=== PATIENT | male | born 1965 | race Caucasian/White ===

== ENCOUNTER 2021-10-30 20:59 | Inpatient (IN) ==
[2021-10-30 22:11] LABS: ABS Basophils 0.1 10^3/ul (0-0.2); ABS Eosinophils 0.1 10^3/ul (0-0.6); ABS Lymphocytes 2.1 10^3/ul (1.0-4.8); ABS Monocytes 0.5 10^3/ul (0-0.8); Eosinophil % 1.9 %; Hematocrit 43 % (42-52); Hemoglobin 14.6 g/dL (14.0-18.0); Lymphocyte % 31.1 %; Mean Corpuscular HGB Conc 34 g/dL (31-36); Mean Corpuscular Hemoglobin 28 pg (27-31); Mean Corpuscular Volume 83 fL (80-94); Mean Platelet Volume 6.9 fL (7.4-10.4); Platelet Count 304 10^3/uL (150-450); Red Blood Count 5.14 10^6 /uL (4.18-5.48); Red Cell Distribution Width 13 % (10-15); White Blood Count 6.8 10^3/uL (3.5-10.8)
[2021-10-30 22:26] LABS: ALT 31 U/L (7-52); AST 28 U/L (13-39); Albumin 4.6 g/dL (3.2-5.2); Albumin/Globulin Ratio 1.4 (1-3); Alkaline Phosphatase 70 U/L (35-149); Anion Gap 10 mmol/L (2-11); Blood Urea Nitrogen 19 mg/dL (6-24); CO2 Carbon Dioxide 28 mmol/L (22-32); Calcium 9.1 mg/dL (8.6-10.3); Chloride 100 mmol/L (101-111); Globulin 3.3 g/dL (2-4); Glucose 127 mg/dL (70-100); Potassium 3.8 mmol/L (3.5-5.0); Sodium 138 mmol/L (135-145); Total Protein 7.9 g/dL (6.4-8.9)
[2021-10-30 22:27] LABS: Acetaminophen < 15 mcg/mL; Alcohol, S 229 mg/dL (<13); Salicylate < 2.50 mg/dL (<30)
[2021-10-30 22:42] LABS: TSH Ultra Thyroid Stim Horm 1.58 mcIU/mL (0.34-5.60)
[2021-10-31] MEDS ORDERED: Al Hydrox/Mg Hydrox/Simet LIQ 30 ML UDC PO PRN (08:58)
[2021-10-31] MEDS: Albuterol HFA INHALER 8 gm MDI INH PRN (15:38)
[2021-10-31] MEDS: Mometasone/Formoter 100/5 MDI INH SCH (21:17)
[2021-11-01] MEDS: Albuterol HFA INHALER 8 gm MDI INH PRN (02:57)
[2021-11-01] MEDS ORDERED: Multivitamins/Minerals TAB PO SCH (09:00)
[2021-11-01] MEDS: Mometasone/Formoter 100/5 MDI INH SCH (09:39)
[2021-11-01 09:52] VITALS: BP 142/86
== END 2021-11-01 13:30 | disposition home or self-care (01) | DRG 775 ==
LOC: ED 20:59 → EDHOLD 10-31 08:52 → BSU 10-31 11:53
PROVIDERS: ADMIT Psychiatry & Neurology Psychiatry; ATTEND Psychiatry & Neurology Psychiatry